=== PATIENT | female | born 1980 | race American Indian/Alaskan Native ===

== ENCOUNTER 2018-12-23 11:29 | Emergency (ER) | payer OTHER ==
[2018-12-23 11:42] VITALS: BMI 37.3
[2018-12-23 11:46] VITALS: RESP 18; TEMP 97.6; O2SAT 98
--- NOTE | 2018-12-23 11:49 | ED PDOC ---
Arrival/HPI - General Chief Complaint: Lower Extremity Problem/Injury Time Seen by Provider: 12/23/18 11:31 Past Medical History - Infectious Disease Hx of Infectious Diseases: None - Tetanus Immunization Tetanus Immunization: Unknown - Cardiac Hx Hypertension: Yes - Genitourinary/Gynecological Other/Comment: Endometriosis - Psychiatric Hx Substance Use: No - Surgical History Hx Section: Yes (x1) - Anesthesia Hx Anesthesia: Yes Hx Anesthesia Reactions: No Hx Malignant Hyperthermia: No Family/Social History Smoking Status: Never Smoked Hx Alcohol Use: No Hx Substance Use: No Allergies/Home Meds Allergies/Adverse Reactions: Allergies No Known Allergies Allergy (Verified 12/23/18 11:42) Home Medications: Home Meds Medication Instructions Recorded Confirmed hydroCHLOROthiazide [Hydrodiuril] 1 tab PO DAILY 12/23/18 12/23/18 Physical Exam Vital Signs Temp Pulse Resp BP Pulse Ox 12/23/18 11:46 97.6 F 72 18 117/74 98 Medical Decision Making - RAD Interpretation Narrative RAD Interpretations (Text): 12/23/18 13:53 Right Ankle XR: FINDINGS: BONES: Normal. No fracture. JOINTS: Normal. No osteoarthritis. Ankle mortise maintained. Talar dome intact SOFT TISSUES: Normal. OTHER FINDINGS: None. IMPRESSION: Normal right ankle radiographs. Right Knee XR: FINDINGS: BONES: Normal. No fracture. JOINTS: Normal. No osteoarthritis. JOINT EFFUSION: None. OTHER FINDINGS: None. IMPRESSION: Normal radiographs of the right knee. Venous Duplex Right Leg: Negative for DVT Disposition/Present on Arrival - Present on Arrival Any Indicators Present on Arrival: No History of DVT/PE: No History of Uncontrolled Diabetes: No Urinary Catheter: No History of Decub. Ulcer: No History Surgical Site Infection Following: None - Disposition Have Diagnosis and Disposition been Completed?: Yes Diagnosis: Edema, Knee pain Disposition: HOME/ ROUTINE Disposition Time: 13:45 Patient Plan: Discharge Patient Problems: Current Active Problems Problem Status Onset Edema Acute Knee pain Acute Condition: IMPROVED Discharge Instructions (ExitCare): Dependent Edema (DC), Patellofemoral Pain Additional Instructions: Elevate leg when resting Ibuprofen every 8 hours as needed for pain Followup with orthopedic within 2 days Followup with primary within 2 days Return to ER with any new/worsening symptoms Prescriptions: Ibuprofen [Motrin Tab] 600 mg PO Q8 #30 tab Referrals: Rachael Diaz MD [Primary Care Provider] - Follow up with primary Gabriele Funez III, MD [Medical Doctor] - Follow up with primary Forms: [employer] (Rom[facility]), WORK NOTE
--- NOTE | 2018-12-23 13:46 | RAD ---
Date of service: 12/23/2018 PROCEDURE: Right Knee Radiographs. HISTORY: anterior pain, no trauma COMPARISON: None. TECHNIQUE: 2 views obtained. FINDINGS: BONES: Normal. No fracture. JOINTS: Normal. No osteoarthritis. JOINT EFFUSION: None. OTHER FINDINGS: None. IMPRESSION: Normal radiographs of the right knee.
--- NOTE | 2018-12-23 13:46 | RAD ---
Date of service: 12/23/2018 PROCEDURE: Right Ankle Radiographs. HISTORY: ankle pain, swelling, no trauma COMPARISON: None available. TECHNIQUE: 3 views obtained. FINDINGS: BONES: Normal. No fracture. JOINTS: Normal. No osteoarthritis. Ankle mortise maintained. Talar dome intact SOFT TISSUES: Normal. OTHER FINDINGS: None. IMPRESSION: Normal right ankle radiographs.
[2018-12-23 14:25] VITALS: BP 120/71; PULSE 70
--- NOTE | 2018-12-23 15:03 | US ---
PROCEDURE: Right lower extremity venous US HISTORY: Leg pain and swelling. Evaluate for DVT. PHYSICIAN(S): Isak Klein M.D. TECHNIQUE: Duplex sonography and color-flow Doppler with graded compression were used to evaluate the deep venous system of the right lower extremity. FINDINGS: The visualized deep venous system of the right lower extremity is sonographically normal and compressible. Normal waveforms and augmentation are seen. There is no sonographic evidence for deep venous thrombosis in the visualized segments of the right lower extremity. IMPRESSION: 1. No sonographic evidence for deep venous thrombosis in the visualized segments of the right lower extremity.
== END 2018-12-23 14:24 | disposition home or self-care (01) ==
LOC: ED 11:29
DX: M25.561 Pain in right knee (principal); R60.9 Edema, unspecified
CPT/HCPCS: 73560; 73610; 81025; 93971; 96372; 99283; J1885